=== PATIENT | male | born 1990 | race Caucasian/White ===

== ENCOUNTER 2025-08-16 09:18 | Emergency (ER) | payer OTHER ==
[~2025-08-16] VITALS: Ht 157.5 cm; Wt 75.0 kg
[2025-08-16 10:15] VITALS: TEMP 98
[2025-08-16] MEDS: KETOROLAC TROMETHAMINE 60 MG/2 ML VIAL IM ONE (10:46)
[2025-08-16 11:56] VITALS: BP 124/71; PULSE 87; RESP 18; O2SAT 98
== END 2025-08-16 12:59 | disposition home or self-care (01) ==
LOC: EMS 09:18
DX: S22.41XA Multiple fractures of ribs, right side, initial encounter for closed fracture (principal); X58.XXXA Exposure to other specified factors, initial encounter; Y93.89 Activity, other specified; Y92.89 Other specified places as the place of occurrence of the external cause; Y99.8 Other external cause status
CPT/HCPCS: 99283; 71101; 96372; J1885